=== PATIENT | male | born 1955 | race Caucasian/White ===

== ENCOUNTER 2020-02-22 15:44 | Emergency (ER) | payer SELFPAY ==
[2020-02-22 15:48] VITALS: BP 132/87
--- NOTE | 2020-02-22 19:09 | NUR ---
Pt not in lobby when called.
--- NOTE | 2020-02-22 19:24 | NUR ---
PT NOT IN LOBBY WHEN CALLED.
--- NOTE | 2020-02-22 19:44 | NUR ---
Pt not in lobby when called.
--- NOTE | 2020-02-22 19:56 | NUR ---
Pt no longer in lobby. Assumed LWBS.
== END 2020-02-22 19:58 | disposition left against medical advice (07) ==
LOC: ED 19:30
DX: R55 Syncope and collapse (principal); Z53.21 Procedure and treatment not carried out due to patient leaving prior to being seen by health care provider

== ENCOUNTER 2020-02-23 16:00 | Emergency (ER) | payer SELFPAY ==
[~2020-02-23] VITALS: Ht 172.7 cm; Wt 66.2 kg
--- NOTE | 2020-02-23 16:22 | NUR ---
SWITCHBOARD MANAGER NOTE: EKG TAKEN IN TRIAGE
[2020-02-23] MEDS ORDERED: NEOSPORIN OINT. PKT 1 PACKET ONE (18:25)
[2020-02-23 21:00] VITALS: BP 100/56
--- NOTE | 2020-02-23 21:49 | NUR ---
follow up and discharge instructions given to pt and he verbalized understanding. prescriptions given, and pt dressed for discharge.
== END 2020-02-23 22:02 | disposition home or self-care (01) ==
LOC: ED 16:40
DX: U07.1 COVID-19 (principal); R06.00 Dyspnea, unspecified; R07.89 Other chest pain; R06.02 Shortness of breath; R05 Cough; Z59.0 Homelessness
CPT/HCPCS: 71045; 87635; 93005; 99285

== ENCOUNTER 2020-03-11 11:19 | Emergency (ER) | payer MEDICAID ==
[~2020-03-11] VITALS: Ht 177.8 cm; Wt 62.6 kg
[2020-03-11 11:21] VITALS: BP 132/70
== END 2020-03-11 12:04 | disposition home or self-care (01) ==
LOC: ED 11:58
DX: Z00.00 Encounter for general adult medical examination without abnormal findings (principal)
CPT/HCPCS: 99281

== ENCOUNTER 2020-03-19 05:14 | Emergency (ER) | payer MEDICAID ==
[~2020-03-19] VITALS: Ht 180.3 cm; Wt 60.0 kg
[2020-03-19 05:19] VITALS: BP 132/79
--- NOTE | 2020-03-19 05:50 | NUR ---
PT REFUSING TO WEAR MASK, BLOWING NOSE IN HANDS AND COUGHING ON STAFF.
[2020-03-19] MEDS ORDERED: ACETAMINOPHEN 500 MG TABLET ONE (05:55)
[2020-03-19] MEDS ORDERED: ACETAMINOPHEN 325 MG TABLET PO ONE (06:00)
--- NOTE | 2020-03-19 06:16 | NUR ---
PT MEDICATED PER MAR SWABBED FOR COVID. PT GETTING VERBALLY AGGRESSIVE WITH STAFF WHEN HE DEMANDED [facility]CO AND WAS TOLD HE WAS NOT GETTING NARCOTIC PAIN MEDS. SECURITY CALLED TO ESCORT PT FROM ER AT THIS TIME HE REMAINS NONCOMPLIANT WITH MASK AND HAND WASHING
== END 2020-03-19 06:20 | disposition home or self-care (01) ==
LOC: ED 05:44
DX: M54.5 Low back pain (principal); G89.29 Other chronic pain; Z20.822 Contact with and (suspected) exposure to COVID-19; R05 Cough; R09.81 Nasal congestion
CPT/HCPCS: 87635; 99283

== ENCOUNTER 2020-04-09 20:38 | Emergency (ER) | payer MEDICAID ==
[~2020-04-09] VITALS: Ht 182.9 cm; Wt 65.3 kg
[2020-04-09] MEDS ORDERED: SODIUM CHLORIDE FLUSH 10ML SYR IVF ONE (21:30)
--- NOTE | 2020-04-09 21:42 | NUR ---
CC OF LEFT LOWER LEG PAIN/REDNESS, AND SWELLING. PT TALKING VERY FAST AND MUMBLES, DIFFICULTY UNDERSTANDING HOW LONG SWELLING HAS BEEN PRESENT. PT STATES HE WAS JUST SEEN AT [facility] PT ASKED TO TAKE JEANS OFF FOR LEG ASSESSMENT, 2 PAIRS OF SCRUB BOTTOMS AND ONE PAIR OF JEANS REMOVED. PT ALSO HAS MULTIPLE JACKETS IN ROOM. PT ADMITS TO USING METH 2 DAYS AGO. PT VERY ANXIOUS ABOUT IV PLACEMENT AND LAB DRAW.
[2020-04-09 21:48] LABS: MEAN CORPUSCULAR HEMOGLOBIN 30.9 pg (27.5-34.5); MEAN CORPUSCULAR HGB CONC 33.7 g/dL (33.2-36.2); MEAN PLATELET VOLUME 7.6 fL (7.4-10.4); PLATELET COUNT 388 x10^3/uL (130-400); RED BLOOD COUNT 3.56 x10^6/uL (4.38-5.82); RED CELL DISTRIBUTION WIDTH 15.2 % (9.4-14.8)
--- NOTE | 2020-04-09 21:55 | NUR ---
DR CRESPO AT BEDSIDE TO ASSESS PT AND DISCUSS POC PT AGGITATED AND REQ FOOD STS HE HASN'T EATEN IN DAYS AND CRAWLED FROM [place] TO [place] AND BACK
[2020-04-09 21:56] LABS: ALANINE AMINOTRANSFERASE 23 U/L (12-78); ALBUMIN 3.2 g/dL (3.4-5.0); ANION GAP 10 mmol/L (5-15); CALCIUM 8.9 mg/dL (8.5-10.1); CHLORIDE 103 mmol/L (98-107)
[2020-04-09 21:58] LABS: ALKALINE PHOSPHATASE 91 U/L (45-117); BILIRUBIN,TOTAL 0.9 mg/dL (0.2-1.0); CREATININE 1.22 mg/dL (0.7-1.3); TOTAL PROTEIN 8.1 g/dL (6.4-8.2)
[2020-04-09 22:29] LABS: MD YES
[2020-04-09 22:36] LABS: ANISOCYTOSIS 1+; BAND#(MANUAL) 0.11 x10^3/uL; BANDS%(MANUAL) 1 % (0-7); BASOS#(MANUAL) 0.23 x10^3/uL (0-0.1); BASOS% (MANUAL) 2 % (0-1); LYMPH#(MANUAL) 1.24 x10^3/uL (1-3.4); LYMPHS% (MANUAL) 11 % (22-44); MONOS#(MANUAL) 0.68 x10^3/uL (0.3-2.7); MONOS% (MANUAL) 6 % (2-9); POLYCHROMASIA 1+; SEG#(MANUAL) 9.04 x10^3/uL (1.8-6.8); SEGS% (MANUAL) 80 % (42-75)
[2020-04-09 22:37] LABS: <PLATELET ESTIMATE> ADEQUATE; <PLT MORPHOLOGY> NORMAL PLT MORPH; ECHINOCYTES 1+; OVALOCYTES 1+; SPHEROCYTES 1+; TARGET CELLS 1+
--- NOTE | 2020-04-09 23:23 | NUR ---
PT SLEEPING, RESP EVEN AND UNLABORED
--- NOTE | 2020-04-09 23:23 | NUR ---
Melanie chowdhury in [facility] - 04/09/20 at 2323 by TARYN US AT BEDSIDE
--- NOTE | 2020-04-09 23:45 | NUR ---
PT SLEEPING, WHEN WOKEN UP TO REPOSITION FOR US PT STARTS CRYING, UNABLE TO EXPLAIN TO RN TO WHY. PT CRYING BUT COOPERATIVE WITH LAYING ON BACK FOR US TECH.
[2020-04-10] MEDS ORDERED: CEFAZOLIN PMX 1GM/50ML 50 ML ONE (00:35)
[2020-04-10] MEDS ORDERED: CEFAZOLIN 1,000 MG IM ONE (01:00)
[2020-04-10] MEDS ORDERED: CEFAZOLIN PMX 1GM/50ML 50 ML IV ONE (01:00)
[2020-04-10 02:47] VITALS: BP 138/76
== END 2020-04-10 02:49 | disposition home or self-care (01) ==
LOC: ED 22:44
DX: L03.116 Cellulitis of left lower limb (principal); D64.9 Anemia, unspecified; M79.662 Pain in left lower leg; R60.0 Localized edema; Z72.9 Problem related to lifestyle, unspecified
CPT/HCPCS: 36415; 80053; 85025; 93970; 99284

== ENCOUNTER 2020-04-12 15:37 | Emergency (ER) | payer MEDICAID ==
[~2020-04-12] VITALS: Ht 175.3 cm; Wt 63.2 kg
[2020-04-12 15:43] VITALS: BP 118/86
--- NOTE | 2020-04-12 16:32 | NUR ---
HOSTESS HOST: SECURITY ESCORTED PT OFF PROPERTY PRIOR TO PT RECEIVING DC PPWK.
== END 2020-04-12 16:08 | disposition left against medical advice (07) ==
LOC: ED 16:00
DX: L03.116 Cellulitis of left lower limb (principal); Z76.0 Encounter for issue of repeat prescription
CPT/HCPCS: 99281; 99283